=== PATIENT | male | born 1995 | race Hispanic/Latino ===

== ENCOUNTER 2017-10-25 10:43 | Emergency (ER) | payer OTHER ==
[~2017-10-25] VITALS: Ht 152.4 cm; Wt 69.0 kg
[2017-10-25 12:13] LABS: HEMOGLOBIN 16.1 g/dl (14.0-18.0); IMMATURE GRANULOCYTES 0.3 % (0.0-1.0); MEAN CELL VOLUME 88.5 fL CALC (80.0-100.0); NEUT# 8.52 thou/uL (1.82-7.42); RED BLOOD COUNT 5.2 mill/uL (4.70-6.10); RED CELL DISTRI WIDTH 12.4 % (11.5-15.5)
[2017-10-25 12:14] LABS: URINE BILIRUBIN - DIPSTICK NEGATIVE (NEGATIVE); URINE BLOOD DIPSTICK TRACE-INTACT (NEGATIVE); URINE COLOR YELLOW; URINE GLUCOSE - DIPSTICK NEGATIVE (NEGATIVE); URINE KETONE NEGATIVE (NEGATIVE); URINE LEUK ESTERASE NEGATIVE (NEGATIVE); URINE NITRITE - DIPSTICK NEGATIVE (Negative); URINE PROTEIN - DIPSTICK NEGATIVE (NEG-TRACE); URINE UROBILINOGEN - DIPSTICK 0.2 E.U./dL (0.2)
[2017-10-25 12:22] LABS: URINE CLARITY CLEAR
[2017-10-25 12:37] LABS: ALBUMIN 4.9 g/dL (3.2-5.0); ALKALINE PHOSPHATASE 101 u/l (38-126); AMYLASE 60 u/l (30-110); ANION GAP 17 (6-22 (CALC)); BUN 15 mg/dL (9-20); BUN/CREATININE RATIO 21 (12-20 (CALC)); CARBON DIOXIDE 23 mmol/l (22-30); CHLORIDE 106 mmol/l (95-108); CREATININE 0.7 mg/dL (0.7-1.3); GFR > 60 ML/MIN (>=60 (CALC)); GFR FOR AFR.AMER. > 60 ML/MIN (>=60 (CALC)); GLUCOSE 94 mg/dL (75-110); LIPASE 58 u/l (23-300); POTASSIUM 4.4 mmol/l (3.5-5.1); SGOT/AST 42 u/l (17-59); SGPT/ALT 47 u/l (21-72); SODIUM 142 mmol/l (137-146); TOTAL PROTEIN 7.6 g/dL (6.3-8.2)
[2017-10-25] MEDS ORDERED: AMOXICILLIN500 M2 PO (14:40)
[2017-10-25 14:49] VITALS: BP 123/72
== END 2017-10-25 14:55 | disposition home or self-care (01) | DRG 153 ==
LOC: ED 10:43
PROVIDERS: Emergency Medicine
DX: J02.0 Streptococcal pharyngitis (principal); R10.9 Unspecified abdominal pain
CPT/HCPCS: Q9967

== ENCOUNTER 2018-05-03 21:17 | Emergency (ER) | payer OTHER ==
[~2018-05-03] VITALS: Ht 152.4 cm; Wt 76.0 kg
[~2018-05-03 21:17] MED LIST: AMOXICILLIN500 M2 PO
[2018-05-03] MEDS ORDERED: AMOXICILLIN500 MG PO (22:46)
[2018-05-03 23:16] VITALS: BP 151/79
== END 2018-05-03 23:16 | disposition home or self-care (01) | DRG 153 ==
LOC: ED 21:17
DX: J02.9 Acute pharyngitis, unspecified (principal); H66.93 Otitis media, unspecified, bilateral

== ENCOUNTER 2020-01-09 09:18 | Emergency (ER) | payer OTHER ==
[~2020-01-09 09:18] MED LIST changes: +AMOXICILLIN500 MG PO
[2020-01-09] MEDS ORDERED: TAM75CAP PO (10:12)
[2020-01-09] MEDS ORDERED: ONDANSETRON4 MG PO (10:12)
[2020-01-09 10:29] VITALS: BP 135/77
== END 2020-01-09 10:29 | disposition home or self-care (01) ==
LOC: ED 09:18
DX: J11.1 Influenza due to unidentified influenza virus with other respiratory manifestations (principal)